=== PATIENT | male | born 1975 ===

== ENCOUNTER 2019-04-16 12:13 | Emergency (ER) | payer OTHER ==
[2019-04-16 12:40] VITALS: BP 147/93
--- NOTE | 2019-04-16 13:39 | UC ---
Lower Extremity/Ankle HPI - HPI Summary HPI Summary: 43 year old male, no PMH, no prior injuries/ surgeries to knee c/o right knee pain after fall about 2 days ago. Patient states he was climbing down [address] and fell, hitting patella on metal step + pain, no improvement since. minimal swelling, patient is ambulatory. NO ankle pain, no hip pain. - History of Current Complaint Chief Complaint: UCLowerExtremity Stated Complaint: LEG INJURY Time Seen by Provider: 04/16/19 13:16 Hx Obtained From: Patient Onset/Duration: Sudden Onset, Lasting Days - 2 days, Still Present Severity Initially: Moderate Severity Currently: Moderate Pain Intensity: 9 Pain Scale Used: 0-10 Numeric Aggravating Factor(s): Standing Alleviating Factor(s): Rest Able to Bear Weight: Yes Related History: Occupational Injury - Allergies/Home Medications Allergies/Adverse Reactions: Allergies Allergy/AdvReac Type Severity Reaction Status Date / Time No Known Allergies Allergy Verified 04/16/19 12:40 Home Medications: Home Medications Fluticasone-Salmeterol 100-50* [Advair Diskus 100-50*] 1 puff INH DAILY [History Confirmed 04/16/19] Naproxen [Naproxen 500 mg tab] 1 tab PO DAILY 04/16/19 [History Confirmed ] Terbinafine HCl 1 tab PO DAILY 04/16/19 [History Confirmed 04/16/19] PMH/Surg Hx/FS Hx/Imm Hx Previously Healthy: Yes - Surgical History Surgical History: Yes Surgery Procedure, Year, and Place: right leg surgery after kicked by cow - Family History Known Family History: Positive: Non-Contributory - Social History Alcohol Use: None Substance Use Type: None Smoking Status (MU): Never Smoked Tobacco - Immunization History Most Recent Tetanus Shot: not sure Review of Systems All Other Systems Reviewed And Are Negative: Yes Musculoskeletal: Positive: Decreased ROM, Edema, Myalgia Is Patient Immunocompromised?: No Physical Exam Triage Information Reviewed: Yes Appearance: Well-Appearing, No Pain Distress, Well-Nourished Vital Signs: Initial Vital Signs Temp 98 F 04/16/19 12:37 Pulse 52 04/16/19 12:37 Resp 18 04/16/19 12:37 BP 147/93 04/16/19 12:37 Pulse Ox 99 04/16/19 12:37 Vital Signs Reviewed: Yes Eyes: Positive: Conjunctiva Clear ENT: Positive: Hearing grossly normal Musculoskeletal: Positive: Strength Intact, Other: - right knee- trace joint effusion, TTP over patella at 5 oclock position, neg trey, no pain with santos/ omer stressing, no lax, neg ACL/ PCL testing, ROM 0-90 without pain, able to flex to 120 with mild pain. no bruising noted. neg mcmurrays Neurological Exam: Normal Neurological: Positive: Alert, Muscle Tone Normal Psychological Exam: Normal Skin: Positive: Other - no open wounds/ sores. Lower Extremity Course/Dx - Course Course Of Treatment: radiograph- negative. Medial Collateral Ligament - Naproxen every 12 hours x 2-3 days to help with pain, swelling - STEPHIE wrap as needed for comfort - Elevate, Ice leg as much as possible. Rest as much as possible. - Follow up in 3-5 days if no improvement - Differential Dx/Diagnosis Differential Diagnosis/HQI/PQRI: Cellulitis, Osteomyelitis, Puncture Wound, Sprain, Strain Provider Diagnosis: MCL sprain of right knee Discharge - Sign-Out/Discharge Documenting (check all that apply): Patient Departure All imaging exams completed and their final reports reviewed: Yes - Discharge Plan Condition: Good Disposition: HOME Prescriptions: Naproxen [Naproxen 250 mg tab] 250 mg PO BID PRN #60 tablet PRN Reason: pain, swelling Naproxen [Naproxen 250 mg tab] 250 mg PO BID #60 tablet Patient Education Materials: Naproxen (By mouth), Knee Sprain (ED), R.I.C.E. Treatment (ED) Print Language: MAORI Referrals: [facility] [Provider Group] - If Needed (Free clinic that provides care ) [facility] [Outside] No Primary Care Phys,[facility] [Primary Care Provider] - Additional Instructions: Medial Collateral Ligament - Naproxen every 12 hours x 2-3 days to help with pain, swelling - STEPHIE wrap as needed for comfort - Elevate, Ice leg as much as possible. Rest as much as possible. - Follow up in 3-5 days if no improvement - Billing Disposition and Condition Condition: GOOD Disposition: Home
== END 2019-04-16 14:18 | disposition home or self-care (01) ==
LOC: UCEAST 12:13
DX: S83.411A Sprain of medial collateral ligament of right knee, initial encounter (principal); V89.0XXA Person injured in unspecified motor-vehicle accident, nontraffic, initial encounter; Y92.9 Unspecified place or not applicable
CPT/HCPCS: 99202; G0463